=== PATIENT | female | born 1955 | race Caucasian/White ===

== ENCOUNTER 2017-02-24 13:44 | Emergency (ER) | payer MEDICARE, OTHER ==
--- NOTE | 2017-02-24 14:03 | PDOC ---
History of Present Illness - General Chief Complaint: Syncope/Near Syncope Stated Complaint: SYNCOPY Time Seen by Provider: 02/24/17 13:48 - History of Present Illness Initial Comments: 02/24/17 14:27 The patient is a 61 year old female with a history of HTN, osteoarthritis, and anxiety who presents for evaluation via EMS following an syncopal episode. 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 She does not know if she hit her head and EMS does not know either. She denies any chest pain or palpitations prior to the episode. She currently denies fevers, chills, SOB, chest pain, abdominal pain, numbness, or weakness. Past History - Past Medical History Allergies/Adverse Reactions: Allergies Allergy/AdvReac Type Severity Reaction Status Date / Time No Known Allergies Allergy Verified 02/24/17 15:21 Home Medications: Ambulatory Orders Cephalexin [Keflex] 500 mg PO TID #21 capsule 11/02/13 Naproxen [Naprosyn -] 500 mg PO BID #30 tablet 11/02/13 Pnv/Iron,Carb/Om-3/FA/Fat 1 [Multivitamin with Minerals Cap] 100 ml PO ASDIR Sulfamethoxazole/Trimethoprim [Bactrim *Ds*] 1 tab PO BID #14 tablet 11/02/13 Anemia: No Asthma: No Cancer: No Cardiac Disorders: No CVA: No COPD: No CHF: No Dementia: No Diabetes: Yes GI Disorders: No Disorders: No HTN: No Hypercholesterolemia: No Liver Disease: No Seizures: No Thyroid Disease: No - Surgical History Abdominal Surgery: No Appendectomy: No Cardiac Surgery: No Cholecystectomy: No Lung Surgery: No Neurologic Surgery: No Orthopedic Surgery: Yes (rt shoulder sx) - Immunization History Td Vaccination: No TDAP Vaccination: No Immunization Up to Date: No - Suicide/Smoking/Psychosocial Hx Smoking Status: No Smoking History: Never smoked Have you smoked in the past 12 months: No Number of Cigarettes Smoked Daily: 0 Hx Alcohol Use: No Drug/Substance Use Hx: No Substance Use Type: None Hx Substance Use Treatment: No Review of Systems - Review of Systems Comments:: 02/24/17 14:41 Constitutional: No fevers, chills, fatigue, malaise HEENT: No Rhinorrhea, nasal congestion, visual changes Cardiovascular: Syncope. No chest pain, palpitations, lightheadedness Respiratory: No Cough, SOB, Hemoptysis, Gastrointestinal: No Abdominal pain, Nausea, Vomiting, Constipation, Diarrhea, Melena Genitourinary: No Dysuria, Frequency, Urgency, Hesitancy, Hematuria, Flank pain Musculoskeletal: No Myalgia, arthralgia Skin: No rashes, itching, bruising, pallor Neurologic: No Headache, Dizziness, Numbness, Weakness, or Tingling *Physical Exam - Physical Exam Comments: 02/24/17 14:43 General Appearance: Nourished. No Apparent Distress HEENT: EOMI, ELIAZAR. No obvious signs of head trauma. No Pharyngeal Erythema, Tonsillar Exudate, Tonsillar Erythema Neck: No Cervical Lymphadenopathy Respiratory/Chest: Lungs Clear, Normal Breath Sounds. No Crackles, Rales, Rhonchi, Wheezing Cardiovascular: Regular Rhythm, Regular Rate. No Murmur, Gallops, Rubs Gastrointestinal/Abdominal: Normal Bowel Sounds, Soft. No Guarding, Rebound, Tenderness Musculoskeletal: No CVA Tenderness Extremity: Normal Capillary Refill Integumentary: Normal Color, Dry, Warm Neurologic: telemetry nurse II-XII NML intact, Fully Oriented, Alert, Normal Mood/Affect, Normal Response, Motor Strength 5/5. ED Treatment Course - LABORATORY CBC & Chemistry Diagram: 02/24/17 15:10 02/24/17 15:10 Medical Decision Making - Medical Decision Making 02/24/17 14:54 The patient is a 61 year old female with a history of HTN, osteoarthritis, and anxiety who presents for evaluation via EMS following an syncopal episode. Differential includes but is not limited to: Vaso-vagal syncope, arrhythmia, acs , metabolic derangement. Given the patient's history as well as normal physical exam, it is likely her syncope was vaso-vagal in nature. EKG done in triage was unremarkable without signs of arrhythmia or st abnormalities. She reports improvement in her symptoms here in the ED. We will obtain a cbc, cmp to evaluate for metabolic derangement. We have low suspicion for acs given her lack of pain. We will continue to monitor and reassess. 02/24/17 17:41 cbc, cmp, UA are unremarkable. The patient reports feeling significant improvement in her symptoms. We are comfortable discharging the patient home at this time with PCP follow up. We discussed the results and the plan with the patient who voiced understanding and is agreeable with the plan. *DC/Admit/Observation/Transfer Diagnosis at time of Disposition: Syncope Qualifiers: Syncope type: vasovagal syncope Qualified Code(s): R55 - Syncope and collapse; R55 - Syncope and collapse - Discharge Dispostion Disposition: HOME Condition at time of disposition: Improved Admit: No - Patient Instructions Printed Discharge Instructions: DI for Syncope in Adults (Fainting) Additional Instructions: Please return to the ER if you experience concerning or worsening symptoms. Please call to schedule a follow up appointment with your primary care provider to discuss your ER visit. Print Language: FRENCH
--- NOTE | 2017-02-24 14:10 | PDOC ---
Attending Attestation - Resident Resident Name: Nasim Olmos - ED Attending Attestation I have performed the following: I have examined & evaluated the patient, The case was reviewed & discussed with the resident, I agree w/resident's findings & plan, Exceptions are as noted - HPI HPI: 02/24/17 15:28 61y F hx of htn, OA, anxiety presents via EMS for evaluation of syncope. The pt states she was a t a store, started feelnig lightheaded and syncopized. episode was witnessed. Pt denies any heaadche, dizziness, vision changes, cp, sob, palpitations, n/v, abd pain, new back pain, numbness/tingling/weakness. the pt had breakfast this morning, denies any current complaints. - Physicial Exam PE: 02/24/17 15:50 GENERAL: The patient is awake, alert, and fully oriented, Nontoxic - in no acute distress. HEAD: Normocephalic, atraumatic. EYES: extraocular movements intact, sclera anicteric, conjunctiva clear. ENT: Normal voice, Moist mucous membranes. NECK: Normal range of motion, supple LUNGS: Breath sounds equal, clear to auscultation bilaterally. No wheezes, no rhonchi, no rales. HEART: Regular rate and rhythm, normal S1 and S2 without murmur, rub or gallop. ABDOMEN: Soft, nontender, normoactive bowel sounds. No guarding, no rebound. . No CVA tenderness EXTREMITIES: Normal range of motion, no edema. No clubbing or cyanosis. No cords, erythema, or tenderness. NEUROLOGICAL: No facial assymetry, Normal speech, PSYCH: Normal mood, normal affect. SKIN: Warm, Dry, normal turgor, - Medical Decision Making 02/24/17 15:50 unknown if she had head injury but pt denies any headache and there is no signs of obvious trauma or tenderness. Will obtain blood work to rule out metabolic derangements, anemia EKG to screen for arrhythmia No significant cardiac risk factors to predispose for arrhythmia If the patient's blood work is normal and the patient is asymptomatic consider discharge to follow-up with PMD 02/24/17 17:50 pt feeling asymptomatic requesting to go home labs unremarakble will dc with pmd fu return precautions were discused I discussed the physical exam findings, ancillary test results and final diagnoses with the patient. I answered all of the patient's questions. The patient was satisfied with the care received and felt comfortable with the discharge plan and treatment plan. The patient will call their primary care physician within 24 hours to arrange follow-up and will return to the Emergency Department with any new, persistent or worsening symptoms. Heart Score/ECG Review - ECG Impressions Comment:: 02/24/17 15:51 Twelve-lead EKG was performed and reviewed by me. There is normal sinus rhythm with a normal rate. The axis is normal. The intervals are normal. There is normal R wave progression There are no ST or T wave abnormalities. Impression: Normal twelve-lead EKG
[2017-02-24 14:12] VITALS: BMI 32.5
[2017-02-24 15:22] LABS: BASOPHIL 0.5 % (0-2.0); EOSINOPHIL 2.2 % (0-4.5); MCH 29.9 pg (25.7-33.7); MCHC 33.6 g/dl (32.0-36.0); MEAN CELL VOLUME 89.2 fl (80-96); MEAN PLT VOLUME 7.1 fl (7.5-11.1); PLATELET COUNT 255 K/MM3 (134-434); RDW 13.1 % (11.6-15.6); WHITE BLOOD COUNT 7.4 K/mm3 (4.0-10.0)
[2017-02-24] MEDS ORDERED: ACETAMINOPHEN 325 MG TABLET (FP) PO ONE (15:28)
[2017-02-24] MEDS ORDERED: ACETAMINOPHEN 325 MG TABLET (FP) ONE (15:36)
[2017-02-24 15:52] LABS: ALBUMIN 3.6 g/dl (3.4-5.0); ANION GAP 6 (8-16); CALCIUM 9.1 mg/dL (8.5-10.1); CO2 29 mmol/L (21-32); CREATININE 0.5 mg/dL (0.55-1.02); GLUCOSE,RANDOM 96 mg/dL (74-106); SGOT/AST 23 U/L (15-37); SGPT/ALT 37 U/L (12-78)
[2017-02-24 15:53] LABS: ALK PHOS 97 U/L (45-117); BILIRUBIN,TOTAL 0.4 mg/dL (0.2-1.0)
[2017-02-24 17:25] LABS: URINE APPEARANCE CLEAR; URINE BILIRUBIN NEGATIVE (NEGATIVE); URINE BLOOD 1+ (NEGATIVE); URINE COLOR STRAW; URINE GLUCOSE (UA) NEGATIVE (NEGATIVE); URINE KETONE NEGATIVE (NEGATIVE); URINE NITRITE NEGATIVE (NEGATIVE); URINE PROTEIN NEGATIVE (NEGATIVE); URINE UROBILINOGEN NEGATIVE mg/dL (0.2-1.0)
[2017-02-24 17:35] LABS: URINE RBC 1 /hpf (0-3); URINE WBC 2 /hpf (3-5)
[2017-02-24 17:56] VITALS: BP 133/70; PULSE 78; TEMP 98
[2017-02-24 21:14] LABS: URINE LEUK ESTERASE TRACE (NEGATIVE)
--- NOTE | 2017-02-25 07:05 | EKG ---
Test Reason : Blood Pressure : / mmHG Vent. Rate : 073 BPM Atrial Rate : 073 BPM P-R Int : 144 ms QRS Dur : 084 ms QT Int : 386 ms P-R-T Axes : 022 001 015 degrees QTc Int : 425 ms NORMAL SINUS RHYTHM NORMAL ECG WHEN COMPARED WITH ECG OF 07-AUG-2012 20:58, NO SIGNIFICANT CHANGE WAS FOUND Confirmed by APRIL MONCADA MD ([id number]) on 02/25/2017 7:05:04 AM Referred By: Confirmed By:APRIL MONCADA MD
== END 2017-02-24 17:56 | disposition home or self-care (01) ==
LOC: JER 13:44
DX: R55 Syncope and collapse (principal); I10 Essential (primary) hypertension; F41.9 Anxiety disorder, unspecified; M19.90 Unspecified osteoarthritis, unspecified site
CPT/HCPCS: 36415; 80053; 81003; 81015; 85025; 93005; 93010; 99285-25

== ENCOUNTER 2017-08-13 08:34 | Emergency (ER) | payer MEDICARE, OTHER ==
--- NOTE | 2017-08-13 08:46 | PDOC ---
History of Present Illness - General Stated Complaint: DIZZINESS History Source: Patient Exam Limitations: Language Barrier - History of Present Illness Initial Comments: 08/13/17 11:05 HPI: This 62-year-old female presents to the emergency room after having a rapid response in the hallway of [facility]. Apparently she had gone to [address] [place] [address] where her primary physician sees her. She had complained of feeling dizzy and lightheaded for the last 4 days. They told her to report to the emergency room. She drove here and once she was in the building it was witnessed that she did not have a loss consciousness however she did feel dizzy and fell to the floor. She was brought into the emergency room for an exam. She did not hit her head per the witnesses. Chief Compliant:dizzy, earache, sore throat Pain location:ear and throat Duration:4 days Modifying factors:none Quality:pain Radiating:none Severity:moderatee Time:on an doff PMH: OA, was DM but lost weight, no longer on meds FH: Pt has not recently traveled outside the country in the last 30 days. Pt has not been in contact with people who have traveled out of the country, in contact with people who have been ill with fever, n, v, d. SH: smoking use: NONE illicit drug use: NONE alcohol use: NONE employment/educational status: sexual history: PSH: none Home med use noted on JUL Allergies:nka Immunizations: PCP: [address] [place] [address] Past History - Past Medical History Allergies/Adverse Reactions: Allergies Allergy/AdvReac Type Severity Reaction Status Date / Time No Known Allergies Allergy Verified 08/13/17 08:50 Home Medications: Ambulatory Orders Amoxicillin/Potassium Clav [Augmentin 875-125 Tablet] 1 each PO BID #14 tablet 08/13/17 Meclizine HCl [Antivert -] 25 mg PO TID #21 tablet 08/13/17 Anemia: No Asthma: No Cancer: No Cardiac Disorders: No CVA: No COPD: No CHF: No Dementia: No Diabetes: Yes GI Disorders: No Disorders: No HTN: No Hypercholesterolemia: No Liver Disease: No Seizures: No Thyroid Disease: No - Surgical History Abdominal Surgery: No Appendectomy: No Cardiac Surgery: No Cholecystectomy: No Lung Surgery: No Neurologic Surgery: No Orthopedic Surgery: Yes (rt shoulder sx) - Immunization History Td Vaccination: No TDAP Vaccination: No Immunization Up to Date: No - Suicide/Smoking/Psychosocial Hx Smoking Status: No Smoking History: Never smoked Have you smoked in the past 12 months: No Number of Cigarettes Smoked Daily: 0 Hx Alcohol Use: No Drug/Substance Use Hx: No Substance Use Type: None Hx Substance Use Treatment: No Review of Systems - Review of Systems Able to Perform ROS?: Yes Comments:: 08/13/17 11:09 General statement: "I have dizziness, ear pain and sore throat Hematology: neg history of bleeding/blood thinners Skin: Neg for lesions, rash, bruising. HEENT: + ear pain bilaterally, sore throat Respiratory: Neg SOB or difficulty in breathing Cardiac: Neg chest pain GI: Neg pain, n/v : Neg problems on voiding MS: Neg for joint pain/stiffness, no edema Neuro: Neg for LOC, + weakness, + dizzy, Endocrine: Neg for excess thirst/hunger, cold/heat intolerance, excess sweating Allergies: Neg for allergies *Physical Exam - Physical Exam Comments: 08/13/17 11:14 General Appearance: This well appearing 62 yr old male V/S: hemodynamically stable, afebrile, orthostatics stable Skin: WNL of pt's skin color, no signs of pallor, mottling, cyanosis Head:symmetrical Eyes: EOM's intact , PERRLA Ears: with effusion/whitish behind TM and pain on exam with scope Nose: patent Throat: lips, teeth, gums, tongue, buccal mucos pink and moist, neg erythema, exudate Lungs: Chest symmetry equal. Cap refill <3 seconds. Lung sounds clear Cardiac: PMI at R 4MCL space, pos S1 and S2, regular rate. Abdomen: Soft, round, nontender : Not observed Muscularskeletal: , no edema +PMS Neuro: AAOx3, cognitively intact, speech clear and appropriate. ED Treatment Course - LABORATORY CBC & Chemistry Diagram: 08/13/17 08:45 08/13/17 08:45 Medical Decision Making - Medical Decision Making 08/13/17 11:16 This 62 yr female who was in hallway of when she became weak and fell down to floor witnessed by others for feeling dizziness. She did not her head according to bystanders. Rapid response was called. Patient is awake alert and oriented She states that she's been complaining of dizziness for 4 days. Plan Orthostatics are negative UA negative but has a trace of leuk trase and we will send culture to be followed up as an outpatient Labs within normal limits. EKG normal sinus rhythm Cardiac enzyme negative Tympanic membranes with fullness and white/effusion. Pain during exam. We'll treat for OM. Will also treat with meclizine for vertigo type symptoms. *DC/Admit/Observation/Transfer Diagnosis at time of Disposition: Vertigo Otitis media Qualifiers: Otitis media type: unspecified Chronicity: acute Qualified Code(s): H66.90 - Otitis media, unspecified, unspecified ear - Discharge Dispostion Disposition: HOME Condition at time of disposition: Good Admit: No - Prescriptions Prescriptions: Amoxicillin/Potassium Clav [Augmentin 875-125 Tablet] 1 each PO BID #14 tablet Meclizine HCl [Antivert -] 25 mg PO TID #21 tablet - Referrals Referrals: Marie Crowell MD [Primary Care Provider] - [facility] [Provider Group] - Patient Instructions Printed Discharge Instructions: DI for Benign Paroxysmal Positional Vertigo Additional Instructions: Discharge instructions 1. Please follow up with your primary physician within the next few days and explain that you have been seen here in the Emergency Room with dizzy and ear pain. 2. If you experience any worsening of symptoms, please return to the ER 3. Rest, get up slowly when sitting or lying down and pause to prevent to dizziness, Take the meclazine for dizziness and follow up with [facility] for a follow up exam. complete antibiotics as prescribed. No driving while dizziness. 4. Drink plenty of water - Post Discharge Activity
[2017-08-13 08:50] VITALS: TEMP 98.2; BMI 29.2
[2017-08-13 09:38] LABS: URINE APPEARANCE CLEAR; URINE BILIRUBIN NEGATIVE (<2.0 mg/dL); URINE BLOOD 1+ (NEGATIVE); URINE COLOR LTYELLOW; URINE GLUCOSE (UA) NEGATIVE (NEGATIVE); URINE KETONE NEGATIVE (NEGATIVE); URINE LEUK ESTERASE TRACE (NEGATIVE); URINE NITRITE NEGATIVE (NEGATIVE); URINE PROTEIN NEGATIVE (NEGATIVE); URINE UROBILINOGEN NEGATIVE mg/dL (0.2-1.0)
[2017-08-13 09:39] LABS: BASO % 0.6 % (0-2.0); EOS % 2.3 % (0-4.5); HEMATOCRIT 39.3 % (32.4-45.2); HEMOGLOBIN 13.1 GM/dL (10.7-15.3); LYMPH % 43.4 % (8-40); MCH 29.8 pg (25.7-33.7); MCHC 33.3 g/dl (32.0-36.0); MEAN CELL VOLUME 89.5 fl (80-96); MEAN PLT VOLUME 7.7 fl (7.5-11.1); MONO % 6.1 % (3.8-10.2); NEUT % 47.6 % (42.8-82.8); PLATELET COUNT 263 K/MM3 (134-434); RBC 4.39 M/mm3 (3.60-5.2); RDW 13.2 % (11.6-15.6); WHITE BLOOD COUNT 5.5 K/mm3 (4.0-10.0)
[2017-08-13 09:44] LABS: EPI CELLS RARE /HPF (FEW); URINE MUCUS RARE
[2017-08-13 10:04] LABS: ALBUMIN 3.6 g/dl (3.4-5.0); ANION GAP 3 (8-16); BILIRUBIN,TOTAL 0.2 mg/dL (0.2-1.0); BLOOD UREA NITROGEN 13 mg/dL (7-18); CALCIUM 8.5 mg/dL (8.5-10.1); CHLORIDE 108 mmol/L (98-107); CO2 26 mmol/L (21-32); CREATININE 0.5 mg/dL (0.55-1.02); GLUCOSE,RANDOM 109 mg/dL (74-106); POTASSIUM 4.1 mmol/L (3.5-5.1); SGOT/AST 23 U/L (15-37); SGPT/ALT 34 U/L (12-78); SODIUM 137 mmol/L (136-145); TOT PROT 6.8 g/dl (6.4-8.2)
[2017-08-13 10:07] LABS: ALK PHOS 84 U/L (45-117)
[2017-08-13] MEDS ORDERED: MECLIZINE HCL 25 MG TABLET (FP) PO ONE (10:21)
[2017-08-13] MEDS ORDERED: MECLIZINE HCL 25 MG TABLET (FP) ONE (10:31)
[2017-08-13 12:39] VITALS: BP 138/72; PULSE 79
--- NOTE | 2017-08-13 13:14 | EKG ---
Test Reason : Blood Pressure : / mmHG Vent. Rate : 070 BPM Atrial Rate : 070 BPM P-R Int : 150 ms QRS Dur : 084 ms QT Int : 390 ms P-R-T Axes : 012 010 023 degrees QTc Int : 421 ms NORMAL SINUS RHYTHM NORMAL ECG WHEN COMPARED WITH ECG OF 24-FEB-2017 14:13, NO SIGNIFICANT CHANGE WAS FOUND Confirmed by GALE RONDON MD ([id number]) on 08/13/2017 1:14:10 PM Referred By: Confirmed By:GALE RONDON MD
== END 2017-08-13 12:41 | disposition home or self-care (01) ==
LOC: JER 08:34
DX: H66.90 Otitis media, unspecified, unspecified ear (principal); R42 Dizziness and giddiness; E11.9 Type 2 diabetes mellitus without complications
CPT/HCPCS: 36415; 80053; 81003; 81015; 82550; 83036; 84484; 85025; 87086; 93005; 93010; 99284-25

== ENCOUNTER 2020-04-04 10:51 | Emergency (ER) | payer OTHER ==
[2020-04-04 10:59] VITALS: BP 127/64; PULSE 86; TEMP 98.9; BMI 31.4
[2020-04-04] MEDS ORDERED: LIDOCAINE 5% TOPICAL PATCH TP ONE (12:07)
[2020-04-04] MEDS ORDERED: ACETAMINOPHEN 1000 MG/100 ML VIAL (NON FORMULARY) IVPB ONE (12:07)
[2020-04-04] MEDS ORDERED: METOCLOPRAMIDE HCL INJECTION 10 MG/2 ML VIAL IVPB ONE (12:07)
[2020-04-04] MEDS ORDERED: SODIUM CHLORIDE 1,000 ML IV STA (12:07)
[2020-04-04] MEDS ORDERED: ACETAMINOPHEN INJECTION 100 ML IVPB ONE (12:56)
[2020-04-04] MEDS ORDERED: METOCLOPRAMIDE HCL INJECTION 10 MG/2 ML VIAL ONE (12:56)
[2020-04-04] MEDS ORDERED: LIDOCAINE 5% TOPICAL PATCH ONE (12:57)
== END 2020-04-04 14:07 | disposition home or self-care (01) ==
LOC: JER 10:51
PROC: 3E033NZ Introduction of Analgesics, Hypnotics, Sedatives into Peripheral Vein, Percutaneous Approach (ICD-10-PCS; principal; 2020-04-04)
PROC: 3E033GC Introduction of Other Therapeutic Substance into Peripheral Vein, Percutaneous Approach (ICD-10-PCS; 2020-04-04)
PROC: 3E0337Z Introduction of Electrolytic and Water Balance Substance into Peripheral Vein, Percutaneous Approach (ICD-10-PCS; 2020-04-04)
DX: G44.89 Other headache syndrome (principal); H11.32 Conjunctival hemorrhage, left eye
CPT/HCPCS: 70450-TC; 99285-25; J0131

== ENCOUNTER 2020-05-27 06:11 | Inpatient (IN) | payer OTHER ==
[2020-05-27] MEDS ORDERED: ACETAMINOPHEN 1000 MG/100 ML VIAL (NON FORMULARY) IVPB PRN (07:10)
[2020-05-27] MEDS ORDERED: LACTATED RINGERS SOLUTION 1000 ML INFUS.BAG IV STA (07:11)
[2020-05-27 07:16] LABS: INR 1.15 (0.83-1.09); PROTHROMBIN TIME (PATIENT) 13.8 SEC (9.7-13.0)
[2020-05-27 07:18] LABS: BASO % 0.2 % (0-2.0); HEMATOCRIT 39.1 % (32.4-45.2); HEMOGLOBIN 13.5 GM/dL (10.7-15.3); LYMPH % 23.1 % (8-40); MCH 30.1 pg (25.7-33.7); MCHC 34.6 g/dl (32.0-36.0); MEAN CELL VOLUME 86.9 fl (80-96); MEAN PLT VOLUME 7.1 fl (7.5-11.1); MONO % 4.3 % (3.8-10.2); NEUT % 72.4 % (42.8-82.8); PLATELET COUNT 293 K/MM3 (134-434); RDW 12.7 % (11.6-15.6); WHITE BLOOD COUNT 6.9 K/mm3 (4.0-10.0)
[2020-05-27 07:19] LABS: ACTIVATED PTT 30.3 SECONDS (25.2-36.5)
[2020-05-27 07:30] LABS: CHLORIDE 98 mmol/L (98-107); SODIUM 131 mmol/L (136-145)
[2020-05-27 07:33] LABS: ALBUMIN 2.8 g/dl (3.4-5.0); ANION GAP 9 MMOL/L (8-16); CALCIUM 8.1 mg/dL (8.5-10.1); CO2 24 mmol/L (21-32)
[2020-05-27 07:34] LABS: BLOOD UREA NITROGEN 11.3 mg/dL (7-18); GLUCOSE,RANDOM 111 mg/dL (74-106)
[2020-05-27 07:35] LABS: BILIRUBIN,DIRECT 0.2 mg/dL (0.0-0.2); SGPT/ALT 31 U/L (13-61)
[2020-05-27 07:36] LABS: CREATININE 0.6 mg/dL (0.55-1.3); SGOT/AST 31 U/L (15-37)
[2020-05-27 07:37] LABS: BILIRUBIN,TOTAL 0.5 mg/dL (0.2-1); LDH 344 U/L (84-246); TOT PROT 6.7 g/dl (6.4-8.2)
[2020-05-27 07:38] LABS: ALK PHOS 64 U/L (45-117)
[2020-05-27] MEDS ORDERED: FAMOTIDINE 20 MG/50 ML IVPB 20 MG/50 ML MG IVPB ONE ×2 (07:45→08:08)
[2020-05-27] MEDS ORDERED: DEXAMETHASONE SOD PHOSPHATE 4 MG/1 ML VIAL IVPUSH ONE (07:50)
[2020-05-27] MEDS ORDERED: DEXAMETHASONE SOD PHOSPHATE 10 MG/1 ML VIAL ONE (08:07)
[2020-05-27] MEDS ORDERED: ACETAMINOPHEN INJECTION 100 ML IVPB ONE (08:07)
[2020-05-27] MEDS ORDERED: ZINC SULFATE 220 MG TABLET PO SCH (10:00)
[2020-05-27] MEDS ORDERED: ASCORBIC ACID 500 MG TABLET (FP) ONE (10:53)
[2020-05-27] MEDS ORDERED: CHOLECALCIFEROL (VIT D3) 1,000 UNIT (25 MCG) TABLET ONE (10:54)
[2020-05-27] MEDS ORDERED: ENOXAPARIN NA (PORCINE) 40 MG/0.4 ML DISP.SYRIN SQ ONE (10:54)
[2020-05-27] MEDS ORDERED: ZINC SULFATE 220 MG CAPSULE (FP) ONE (10:54)
[2020-05-27] MEDS: ASCORBIC ACID 500 MG TABLET (FP) PO SCH ×2 (11:03→21:20)
[2020-05-27] MEDS: CHOLECALCIFEROL (VIT D3) 1,000 UNIT (25 MCG) TABLET PO SCH (11:03)
[2020-05-27] MEDS: ENOXAPARIN NA (PORCINE) 40 MG/0.4 ML DISP.SYRIN SQ SCH (11:03)
[2020-05-27 13:38] LABS: EPI CELLS 5 /uL (0-25.1); HYALINE CASTS 0 /uL (0-3.1); URINE APPEARANCE CLEAR; URINE BACTERIA 37 /uL (0-1359); URINE BILIRUBIN NEGATIVE (NEGATIVE); URINE COLOR YELLOW; URINE GLUCOSE (UA) NEGATIVE (NEGATIVE); URINE KETONE NEGATIVE (NEGATIVE); URINE LEUK ESTERASE NEGATIVE (NEGATIVE); URINE NITRITE NEGATIVE (NEGATIVE); URINE PROTEIN NEGATIVE (NEGATIVE); URINE RBC 11 /uL (0-23.9); URINE UROBILINOGEN 0.2 mg/dL (0.2-1.0); URINE WBC 4 /uL (0-25.8)
[2020-05-28 01:13] LABS: VENOUS BASE EXCESS -0.8 mmol/L (-2-2); VENOUS O2 SATURATION 92.7 % (70-80); VENOUS PCO2 35.6 mmHg (38-52); VENOUS PH 7.428 (7.310-7.410)
[2020-05-28 02:06] VITALS: BMI 28.5
[2020-05-28 09:50] LABS: HEMATOCRIT 38.3 % (32.4-45.2); HEMOGLOBIN 12.9 GM/dL (10.7-15.3); MCH 29.6 pg (25.7-33.7); MCHC 33.7 g/dl (32.0-36.0); MEAN CELL VOLUME 87.8 fl (80-96); MEAN PLT VOLUME 7.5 fl (7.5-11.1); PLATELET COUNT 318 K/MM3 (134-434); RBC 4.37 M/mm3 (3.60-5.2); WHITE BLOOD COUNT 4.9 K/mm3 (4.0-10.0)
[2020-05-28 09:53] LABS: POTASSIUM 4.2 mmol/L (3.5-5.1)
[2020-05-28 09:59] LABS: BLOOD UREA NITROGEN 11.4 mg/dL (7-18)
[2020-05-28] MEDS ORDERED: DEXAMETHASONE SOD PHOSPHATE 10 MG/1 ML VIAL IVPUSH ONE (10:00)
[2020-05-28 10:01] LABS: MAGNESIUM 2.4 mg/dL (1.8-2.4)
[2020-05-28 10:02] LABS: CALCIUM 8.3 mg/dL (8.5-10.1); CREATININE 0.5 mg/dL (0.55-1.3)
[2020-05-28] MEDS: ENOXAPARIN NA (PORCINE) 40 MG/0.4 ML DISP.SYRIN SQ SCH (10:20)
[2020-05-28] MEDS: CHOLECALCIFEROL (VIT D3) 1,000 UNIT (25 MCG) TABLET PO SCH (10:21)
[2020-05-28] MEDS: FAMOTIDINE 20 MG TABLET PO SCH (10:21)
[2020-05-28] MEDS: ZINC SULFATE 220 MG CAPSULE (FP) PO SCH (10:21)
[2020-05-28] MEDS: ASCORBIC ACID 500 MG TABLET (FP) PO SCH ×2 (10:21→21:02)
[2020-05-28] MEDS ORDERED: REMDESIVIR 200 MG in SODIUM CHLORIDE 210 ML IVPB ONE (19:00)
[2020-05-29] MEDS: ENOXAPARIN NA (PORCINE) 40 MG/0.4 ML DISP.SYRIN SQ SCH (09:41)
[2020-05-29] MEDS: FAMOTIDINE 20 MG TABLET PO SCH (09:41)
[2020-05-29] MEDS: ZINC SULFATE 220 MG CAPSULE (FP) PO SCH (09:41)
[2020-05-29] MEDS: CHOLECALCIFEROL (VIT D3) 1,000 UNIT (25 MCG) TABLET PO SCH (09:41)
[2020-05-29] MEDS: ASCORBIC ACID 500 MG TABLET (FP) PO SCH ×2 (09:41→21:18)
[2020-05-29] MEDS: DEXAMETHASONE 4 MG TABLET (FP) PO SCH (15:56)
[2020-05-29] MEDS: REMDESIVIR 100 MG in SODIUM CHLORIDE 230 ML IVPB SCH (18:09)
[2020-05-30] MEDS: ENOXAPARIN NA (PORCINE) 40 MG/0.4 ML DISP.SYRIN SQ SCH (09:31)
[2020-05-30] MEDS: ASCORBIC ACID 500 MG TABLET (FP) PO SCH ×2 (09:32→21:22)
[2020-05-30] MEDS: FAMOTIDINE 20 MG TABLET PO SCH (09:32)
[2020-05-30] MEDS: CHOLECALCIFEROL (VIT D3) 1,000 UNIT (25 MCG) TABLET PO SCH (09:32)
[2020-05-30] MEDS: ACETAMINOPHEN 325 MG TABLET (FP) PO PRN (09:32)
[2020-05-30] MEDS: ZINC SULFATE 220 MG CAPSULE (FP) PO SCH (09:32)
[2020-05-30] MEDS: DEXAMETHASONE 4 MG TABLET (FP) PO SCH (09:35)
[2020-05-30] MEDS ORDERED: PT OWN MED DRAWER 7, Y5N ONE (09:35)
[2020-05-30 09:45] LABS: BASO % 0.5 % (0-2.0); HEMATOCRIT 40.9 % (32.4-45.2); LYMPH % 22.7 % (8-40); MCH 30.1 pg (25.7-33.7); MCHC 34.2 g/dl (32.0-36.0); MEAN PLT VOLUME 7.4 fl (7.5-11.1); MONO % 5.5 % (3.8-10.2); NEUT % 71.3 % (42.8-82.8); PLATELET COUNT 432 K/MM3 (134-434); RBC 4.65 M/mm3 (3.60-5.2); WHITE BLOOD COUNT 4.5 K/mm3 (4.0-10.0)
[2020-05-30 10:25] LABS: POTASSIUM 4.1 mmol/L (3.5-5.1)
[2020-05-30 10:28] LABS: ALBUMIN 3.1 g/dl (3.4-5.0); BLOOD UREA NITROGEN 17.7 mg/dL (7-18); CALCIUM 8.8 mg/dL (8.5-10.1); MAGNESIUM 2.5 mg/dL (1.8-2.4)
[2020-05-30 10:32] LABS: CREATININE 0.6 mg/dL (0.55-1.3)
[2020-05-30 10:33] LABS: BILIRUBIN,TOTAL 0.5 mg/dL (0.2-1); TOT PROT 7.2 g/dl (6.4-8.2)
[2020-05-30] MEDS ORDERED: POLYETHYLENE GLYCOL 3350 119 GM BTL PO PRN (15:23)
[2020-05-30] MEDS: REMDESIVIR 100 MG in SODIUM CHLORIDE 230 ML IVPB SCH (18:00)
[2020-05-31 09:04] LABS: BASO % 0.2 % (0-2.0); EOS % 0.1 % (0-4.5); HEMATOCRIT 37.5 % (32.4-45.2); HEMOGLOBIN 12.9 GM/dL (10.7-15.3); MCHC 34.3 g/dl (32.0-36.0); MEAN CELL VOLUME 87.5 fl (80-96); MEAN PLT VOLUME 7.3 fl (7.5-11.1); MONO % 8.5 % (3.8-10.2); NEUT % 67.2 % (42.8-82.8); PLATELET COUNT 391 K/MM3 (134-434); RBC 4.29 M/mm3 (3.60-5.2); RDW 12.9 % (11.6-15.6); WHITE BLOOD COUNT 5.4 K/mm3 (4.0-10.0)
[2020-05-31] MEDS ORDERED: PT OWN MED DRAWER 7, Y5N ONE (09:09)
[2020-05-31 09:30] LABS: POTASSIUM 4.8 mmol/L (3.5-5.1)
[2020-05-31 09:33] LABS: ALBUMIN 2.7 g/dl (3.4-5.0); CALCIUM 8.1 mg/dL (8.5-10.1)
[2020-05-31 09:34] LABS: BLOOD UREA NITROGEN 14.2 mg/dL (7-18); MAGNESIUM 2.4 mg/dL (1.8-2.4)
[2020-05-31 09:37] LABS: CREATININE 0.5 mg/dL (0.55-1.3); PHOSPHOROUS 3.3 mg/dL (2.5-4.9)
[2020-05-31 09:38] LABS: TOT PROT 6.2 g/dl (6.4-8.2)
[2020-05-31 09:40] LABS: BILIRUBIN,TOTAL 0.8 mg/dL (0.2-1)
[2020-05-31 09:55] LABS: ANISOCYTOSIS 0; MACROCYTOSIS 0; PLATELET ESTIMATE NORMAL
[2020-05-31] MEDS ORDERED: DOCUSATE SODIUM 100 MG CAPSULE (FP) PO PRN (10:28)
[2020-05-31] MEDS ORDERED: MINERAL OIL ENEMA 133 ML ENEMA RC ONE (10:34)
[2020-05-31] MEDS: ENOXAPARIN NA (PORCINE) 40 MG/0.4 ML DISP.SYRIN SQ SCH (11:52)
[2020-05-31] MEDS: ACETAMINOPHEN 325 MG TABLET (FP) PO PRN (11:53)
[2020-05-31] MEDS: POLYETHYLENE GLYCOL 3350 119 GM BTL PO SCH ×2 (11:57→22:39)
[2020-05-31] MEDS: FAMOTIDINE 20 MG TABLET PO SCH (11:58)
[2020-05-31] MEDS: ZINC SULFATE 220 MG CAPSULE (FP) PO SCH (11:58)
[2020-05-31] MEDS: CHOLECALCIFEROL (VIT D3) 1,000 UNIT (25 MCG) TABLET PO SCH (11:58)
[2020-05-31] MEDS: ASCORBIC ACID 500 MG TABLET (FP) PO SCH ×2 (11:58→22:39)
[2020-05-31] MEDS: DEXAMETHASONE 4 MG TABLET (FP) PO SCH (17:35)
[2020-05-31] MEDS: REMDESIVIR 100 MG in SODIUM CHLORIDE 230 ML IVPB SCH (19:57)
[2020-06-01 08:58] LABS: POTASSIUM 4.9 mmol/L (3.5-5.1)
[2020-06-01 09:09] LABS: BLOOD UREA NITROGEN 14.6 mg/dL (7-18); CALCIUM 8.5 mg/dL (8.5-10.1)
[2020-06-01 09:12] LABS: CREATININE 0.5 mg/dL (0.55-1.3)
[2020-06-01] MEDS ORDERED: PT OWN MED DRAWER 7, Y5N ONE (12:16)
[2020-06-01] MEDS ORDERED: MAGNESIUM HYDROX 2400MG/30ML ORAL SUSPENSION 30 ML CUP PO ONE (12:30)
[2020-06-01] MEDS: ASCORBIC ACID 500 MG TABLET (FP) PO SCH (12:31)
[2020-06-01] MEDS: CHOLECALCIFEROL (VIT D3) 1,000 UNIT (25 MCG) TABLET PO SCH (12:31)
[2020-06-01] MEDS: POLYETHYLENE GLYCOL 3350 119 GM BTL PO SCH (12:31)
[2020-06-01] MEDS: FAMOTIDINE 20 MG TABLET PO SCH (12:31)
[2020-06-01] MEDS: ZINC SULFATE 220 MG CAPSULE (FP) PO SCH (12:31)
[2020-06-01] MEDS: DEXAMETHASONE 4 MG TABLET (FP) PO SCH (12:32)
[2020-06-01] MEDS: ENOXAPARIN NA (PORCINE) 40 MG/0.4 ML DISP.SYRIN SQ SCH (12:32)
[2020-06-01 14:17] VITALS: BP 103/59; PULSE 75; TEMP 99.7
[2020-06-01] MEDS: REMDESIVIR 100 MG in SODIUM CHLORIDE 230 ML IVPB SCH (19:10)
[2020-06-01] MEDS ORDERED: MELATONIN 5 MG TABLETS PO SCH (22:00)
== END 2020-06-01 21:19 | disposition home or self-care (01) | DRG 177 ==
LOC: JER 06:11 → JERBED 08:25 → J6S 22:40
PROVIDERS: ADMIT Internal Medicine; ATTEND Student in an Organized Health Care Education/Training Program
PROC: XW033E5 Introduction of Remdesivir Anti-infective into Peripheral Vein, Percutaneous Approach, New Technology Group 5 (ICD-10-PCS; principal; 2020-05-29)
PROC: XW13325 Transfusion of Convalescent Plasma (Nonautologous) into Peripheral Vein, Percutaneous Approach, New Technology Group 5 (ICD-10-PCS; 2020-05-29)
DX: U07.1 COVID-19 (principal); J96.01 Acute respiratory failure with hypoxia; J12.82 Pneumonia due to coronavirus disease 2019; E11.9 Type 2 diabetes mellitus without complications; E66.9 Obesity, unspecified; Z68.28 Body mass index [BMI] 28.0-28.9, adult; K59.00 Constipation, unspecified
CPT/HCPCS: 36415; 36430; 71045-TC-FY; 80048; 80053; 81003; 82248; 82550; 82728; 82803; 83036; 83605; 83615; 83735; 84100; 84484; 85025; 85027; 85379; 85610; 85730; 86140; 86850; 86900; 86901; 87040; 87086; 87804; 93005; 93010; 94010; 97116-GP; 97161-GP; 99285-25; C9399; C9803; J0131; J1100; P9017; U0003

== ENCOUNTER 2021-01-09 04:43 | Day surgery (SDC) | payer OTHER ==
[2021-01-09] MEDS ORDERED: KETAMINE HCL 200 MG/20 ML VIAL ONE (07:11)
[2021-01-09 08:35] VITALS: BMI 30.7
[2021-01-09 09:53] VITALS: TEMP 97.5
[2021-01-09 10:22] VITALS: BP 135/64; PULSE 61
== END 2021-01-09 10:42 | disposition home or self-care (01) ==
LOC: JASU-ENDO 04:43
PROVIDERS: ATTEND Internal Medicine Gastroenterology
PROC: 0DBL8ZX Excision of Transverse Colon, Via Natural or Artificial Opening Endoscopic, Diagnostic (ICD-10-PCS; 2021-01-09)
PROC: 0DBN8ZX Excision of Sigmoid Colon, Via Natural or Artificial Opening Endoscopic, Diagnostic (ICD-10-PCS; principal; 2021-01-09 09:00)
DX: Z12.11 Encounter for screening for malignant neoplasm of colon (principal); K63.5 Polyp of colon; K57.30 Diverticulosis of large intestine without perforation or abscess without bleeding; K59.00 Constipation, unspecified; K59.89 Other specified functional intestinal disorders; K64.8 Other hemorrhoids; K63.89 Other specified diseases of intestine; Z80.0 Family history of malignant neoplasm of digestive organs

== ENCOUNTER 2021-07-27 10:07 | Emergency (ER) | payer OTHER ==
[2021-07-27 10:37] VITALS: BMI 29.9
[2021-07-27] MEDS ORDERED: ACETAMINOPHEN 1000 MG/100 ML BAG IVPB ONE (11:23)
[2021-07-27] MEDS ORDERED: SODIUM CHLORIDE 1,000 ML IV STA (11:23)
[2021-07-27] MEDS ORDERED: FAMOTIDINE 20 MG/50 ML IVPB 20 MG/50 ML MG IVPB ONE ×2 (11:23→11:46)
[2021-07-27] MEDS ORDERED: ONDANSETRON 4 MG/2 ML VIAL IVPUSH ONE (11:23)
[2021-07-27] MEDS ORDERED: MAG HYDROX/AL HYDROX/SIMETH 30 ML UNIT-DOSE CUP PO ONE (11:37)
[2021-07-27] MEDS ORDERED: ACETAMINOPHEN INJECTION 100 ML IVPB ONE (11:45)
[2021-07-27] MEDS ORDERED: ONDANSETRON 4 MG/2 ML VIAL ONE (11:46)
[2021-07-27] MEDS ORDERED: MAG HYDROX/AL HYDROX/SIMETH 30 ML UNIT-DOSE CUP ONE (11:46)
[2021-07-27 12:37] LABS: BASO % 0.4 % (0-2.0); EOS % 1.1 % (0-4.5); HEMATOCRIT 43.1 % (32.4-45.2); HEMOGLOBIN 14.4 GM/dL (10.7-15.3); LYMPH % 53.4 % (8-40); MCH 29.8 pg (25.7-33.7); MCHC 33.5 g/dl (32.0-36.0); MEAN CELL VOLUME 88.8 fl (80-96); MEAN PLT VOLUME 7.2 fl (7.5-11.1); MONO % 5.8 % (3.8-10.2); NEUT % 39.3 % (42.8-82.8); PLATELET COUNT 274 10^3/uL (134-434); RBC 4.85 M/mm3 (3.60-5.2); RDW 12.9 % (11.6-15.6); WHITE BLOOD COUNT 5.7 K/mm3 (4.0-10.0)
[2021-07-27 12:45] LABS: INR 1.05 (0.83-1.09); PROTHROMBIN TIME (PATIENT) 12.1 SEC (9.7-13.0)
[2021-07-27 13:05] LABS: CALCIUM 9.7 mg/dL (8.5-10.1)
[2021-07-27 13:06] LABS: ALBUMIN 4.2 g/dl (3.4-5.0); BLOOD UREA NITROGEN 10.5 mg/dL (7-18)
[2021-07-27 13:09] LABS: CREATININE 0.6 mg/dL (0.55-1.3)
[2021-07-27 13:11] LABS: BILIRUBIN,TOTAL 0.5 mg/dL (0.2-1); TOT PROT 7.5 g/dl (6.4-8.2)
[2021-07-27 14:23] LABS: EPI CELLS 13 /uL (0-25.1); HYALINE CASTS 1 /uL (0-3.1); URINE APPEARANCE CLEAR; URINE BACTERIA 433 /uL (0-1359); URINE BILIRUBIN NEGATIVE (NEGATIVE); URINE COLOR YELLOW; URINE GLUCOSE (UA) NEGATIVE (NEGATIVE); URINE KETONE NEGATIVE (NEGATIVE); URINE LEUK ESTERASE 1+ (NEGATIVE); URINE NITRITE NEGATIVE (NEGATIVE); URINE PROTEIN NEGATIVE (NEGATIVE); URINE RBC 46 /uL (0-23.9); URINE UROBILINOGEN 0.2 mg/dL (0.2-1.0); URINE WBC 26 /uL (0-25.8)
[2021-07-27 16:38] VITALS: BP 135/64; PULSE 54; TEMP 97.1
== END 2021-07-27 16:39 | disposition home or self-care (01) ==
LOC: JER 10:07
PROC: 3E0333Z Introduction of Anti-inflammatory into Peripheral Vein, Percutaneous Approach (ICD-10-PCS; principal; 2021-07-27)
PROC: 3E033GC Introduction of Other Therapeutic Substance into Peripheral Vein, Percutaneous Approach (ICD-10-PCS; 2021-07-27)
PROC: 3E033GC Introduction of Other Therapeutic Substance into Peripheral Vein, Percutaneous Approach (ICD-10-PCS; 2021-07-27)
PROC: 3E0337Z Introduction of Electrolytic and Water Balance Substance into Peripheral Vein, Percutaneous Approach (ICD-10-PCS; 2021-07-27)
DX: R10.13 Epigastric pain (principal); N30.01 Acute cystitis with hematuria
CPT/HCPCS: 36415; 74177-TC; 76705-TC; 80053; 81003; 83690; 85025; 85610; 87086; 93005; 93010; 96361; 96374; 96375; 99285-25; Q9967

== ENCOUNTER 2021-09-06 04:27 | Day surgery (SDC) | payer OTHER ==
[2021-09-03 12:18] VITALS: BMI 32.0
[2021-09-06 08:35] VITALS: TEMP 97.3
[2021-09-06 09:08] VITALS: BP 109/58; PULSE 66
== END 2021-09-06 09:06 | disposition home or self-care (01) ==
LOC: JASU-ENDO 04:27
PROVIDERS: ATTEND Internal Medicine Gastroenterology
PROC: 0DB78ZX Excision of Stomach, Pylorus, Via Natural or Artificial Opening Endoscopic, Diagnostic (ICD-10-PCS; 2021-09-06)
PROC: 0DB68ZX Excision of Stomach, Via Natural or Artificial Opening Endoscopic, Diagnostic (ICD-10-PCS; 2021-09-06)
PROC: 0DB98ZX Excision of Duodenum, Via Natural or Artificial Opening Endoscopic, Diagnostic (ICD-10-PCS; principal; 2021-09-06 08:00)
DX: K29.50 Unspecified chronic gastritis without bleeding (principal); K30 Functional dyspepsia
CPT/HCPCS: 88305-TC; 88342-TC

== ENCOUNTER 2022-05-30 14:51 | Emergency (ER) | payer OTHER ==
[2022-05-30 15:10] VITALS: RESP 18; BMI 32.8
[2022-05-30] MEDS ORDERED: ACETAMINOPHEN 1000 MG/100 ML BAG IVPB ONE (16:14)
[2022-05-30] MEDS ORDERED: ACETAMINOPHEN INJECTION 100 ML IVPB ONE (16:27)
[2022-05-30] MEDS ORDERED: LIDOCAINE 5% TOPICAL PATCH TP ONE ×3 (16:28→16:29)
[2022-05-30] MEDS ORDERED: LIDOCAINE 5% TOPICAL PATCH ONE (16:32)
[2022-05-30 16:52] LABS: BASO % 0.6 % (0-2.0); EOS % 1.4 % (0-4.5); HEMATOCRIT 41.8 % (32.4-45.2); LYMPH % 42.2 % (8-40); MCH 29.7 pg (25.7-33.7); MCHC 33.5 g/dl (32.0-36.0); MEAN CELL VOLUME 88.8 fl (80-96); MEAN PLT VOLUME 7.7 fl (7.5-11.1); MONO % 7.9 % (3.8-10.2); NEUT % 47.9 % (42.8-82.8); PLATELET COUNT 290 10^3/uL (134-434); RDW 13.2 % (11.6-15.6); WHITE BLOOD COUNT 6.7 K/mm3 (4.0-10.0)
[2022-05-30 16:59] LABS: INR 0.91 (0.83-1.09); PROTHROMBIN TIME (PATIENT) 10.4 SEC (9.7-13.0)
[2022-05-30 17:02] LABS: ACTIVATED PTT 36.1 SECONDS (25.2-36.5)
[2022-05-30 17:19] LABS: CALCIUM 9.7 mg/dL (8.5-10.1)
[2022-05-30 17:20] LABS: BLOOD UREA NITROGEN 11.9 mg/dL (7-18)
[2022-05-30 17:23] LABS: CREATININE 0.6 mg/dL (0.55-1.3)
[2022-05-30 17:24] LABS: TOT PROT 7.4 g/dl (6.4-8.2)
[2022-05-30 17:25] LABS: BILIRUBIN,TOTAL 0.2 mg/dL (0.2-1)
[2022-05-30 19:50] VITALS: BP 126/52; PULSE 68; TEMP 97.9
[2022-05-30] MEDS ORDERED: LIDOCAINE PATCH REMOVAL MC SCH ×3 (22:00)
[2022-05-30] MEDS ORDERED: KETOROLAC TROMETHAMINE 30 MG/1 ML VIAL IM ONE (22:21)
[2022-05-30] MEDS ORDERED: KETOROLAC TROMETHAMINE 15 MG/ML VIAL ONE (22:24)
== END 2022-05-30 22:50 | disposition home or self-care (01) ==
LOC: JER 14:51
PROC: 3E0333Z Introduction of Anti-inflammatory into Peripheral Vein, Percutaneous Approach (ICD-10-PCS; principal; 2022-05-30)
PROC: 3E0233Z Introduction of Anti-inflammatory into Muscle, Percutaneous Approach (ICD-10-PCS; 2022-05-30)
DX: M54.2 Cervicalgia (principal); R10.9 Unspecified abdominal pain; M54.50 Low back pain, unspecified; V43.52XA Car driver injured in collision with other type car in traffic accident, initial encounter
CPT/HCPCS: 36415; 70450-TC; 71045-TC-FY; 71260-TC; 72125-TC; 72128-TC; 72131-TC; 74177-TC; 76604; 76705-TC; 80053; 84484; 85025; 85610; 85730; 86850; 86900; 86901; 93005; 93010; 93308; 99285-25; Q9967

== ENCOUNTER 2022-08-09 15:07 | Emergency (ER) | payer OTHER ==
[2022-08-09 15:30] VITALS: BP 130/46; PULSE 87; TEMP 98.1; BMI 32.8
[2022-08-09 16:50] LABS: EPI CELLS 3 /uL (0-25.1); HYALINE CASTS 0 /uL (0-3.1); PH,URINE 5.5 (5.0-8.0); URINE APPEARANCE CLEAR; URINE BACTERIA 8 /uL (0-1359); URINE BILIRUBIN NEGATIVE (NEGATIVE); URINE COLOR YELLOW; URINE GLUCOSE (UA) NEGATIVE (NEGATIVE); URINE KETONE NEGATIVE (NEGATIVE); URINE LEUK ESTERASE NEGATIVE (NEGATIVE); URINE NITRITE NEGATIVE (NEGATIVE); URINE PROTEIN NEGATIVE (NEGATIVE); URINE RBC 23 /uL (0-23.9); URINE UROBILINOGEN 0.2 mg/dL (0.2-1.0); URINE WBC 7 /uL (0-25.8)
[2022-08-09 17:12] LABS: HEMATOCRIT 39.2 % (32.4-45.2); HEMOGLOBIN 13.1 GM/dL (10.7-15.3); MCH 29.2 pg (25.7-33.7); MCHC 33.3 g/dl (32.0-36.0); MEAN CELL VOLUME 87.4 fl (80-96); MEAN PLT VOLUME 7.5 fl (7.5-11.1); PLATELET COUNT 284 10^3/uL (134-434); RBC 4.48 M/mm3 (3.60-5.2); WHITE BLOOD COUNT 7.7 K/mm3 (4.0-10.0)
[2022-08-09 17:29] LABS: CALCIUM 9.2 mg/dL (8.5-10.1)
[2022-08-09 17:30] LABS: ALBUMIN 3.6 g/dl (3.4-5.0); BLOOD UREA NITROGEN 16.5 mg/dL (7-18)
[2022-08-09 17:33] LABS: CREATININE 0.6 mg/dL (0.55-1.3)
[2022-08-09 17:35] LABS: BILIRUBIN,TOTAL 0.2 mg/dL (0.2-1); TOT PROT 6.8 g/dl (6.4-8.2)
[2022-08-09] MEDS ORDERED: SODIUM CHLORIDE 0.9% 1000 ML INFUS.BAG IV ONE (17:50)
[2022-08-09 18:00] LABS: PLATELET ESTIMATE ADEQUATE
[2022-08-09 18:01] LABS: URINE CRYSTALS MANY /hpf
[2022-08-09 18:17] VITALS: RESP 16
== END 2022-08-09 19:38 | disposition home or self-care (01) ==
LOC: JER 15:07
DX: R10.32 Left lower quadrant pain (principal); R31.9 Hematuria, unspecified; Z20.822 Contact with and (suspected) exposure to COVID-19
CPT/HCPCS: 0241U-QW; 36415; 74177-TC; 80053; 81003; 85025; 87086; 93005; 93010; 99285-25; Q9967

== ENCOUNTER 2023-06-23 11:04 | Observation (INO) | payer OTHER ==
[2023-06-23] MEDS ORDERED: CEFTRIAXONE 1 GM/50 ML BAG ONE (13:12)
[2023-06-23] MEDS ORDERED: ACETAMINOPHEN INJECTION 100 ML IVPB ONE (13:12)
[2023-06-23] MEDS ORDERED: ALBUTEROL SO4 2.5/IPRATROPIUM 0.5 INH SOL 3 ML VIAL.NEB. NEB ONE ×5 (13:12→19:34)
[2023-06-23 13:17] LABS: BASO % 0.3 % (0-2.0); HEMATOCRIT 39.8 % (32.4-45.2); HEMOGLOBIN 13.7 GM/dL (10.7-15.3); LYMPH % 41.3 % (8-40); MCH 29.9 pg (25.7-33.7); MCHC 34.3 g/dl (32.0-36.0); MEAN PLT VOLUME 7.8 fl (7.5-11.1); MONO % 6.9 % (3.8-10.2); NEUT % 51.5 % (42.8-82.8); PLATELET COUNT 172 10^3/uL (134-434); RBC 4.57 M/mm3 (3.60-5.2); RDW 13.9 % (11.6-15.6); WHITE BLOOD COUNT 7.1 K/mm3 (4.0-10.0)
[2023-06-23] MEDS: SODIUM CHLORIDE 0.9% 500 ML INFUS.BAG IV ONE (13:26)
[2023-06-23] MEDS: ACETAMINOPHEN 1000 MG/100 ML BAG IVPB ONE (13:26)
[2023-06-23 13:30] LABS: POTASSIUM 4.3 mmol/L (3.5-5.1)
[2023-06-23 13:32] LABS: ALBUMIN 3.4 g/dl (3.4-5.0)
[2023-06-23 13:33] LABS: BLOOD UREA NITROGEN 8.7 mg/dL (7-18)
[2023-06-23 13:36] LABS: CREATININE 0.5 mg/dL (0.55-1.3)
[2023-06-23 13:37] LABS: TOT PROT 7.3 g/dl (6.4-8.2)
[2023-06-23 13:39] LABS: BILIRUBIN,TOTAL 0.4 mg/dL (0.2-1)
[2023-06-23 13:48] LABS: EPI CELLS 14 /uL (0-25.1); HYALINE CASTS 1 /uL (0-3.1); URINE APPEARANCE CLEAR; URINE BACTERIA 9 /uL (0-1359); URINE BILIRUBIN 1+ (NEGATIVE); URINE COLOR DK YELLOW; URINE GLUCOSE (UA) NEGATIVE (NEGATIVE); URINE KETONE NEGATIVE (NEGATIVE); URINE LEUK ESTERASE TRACE (NEGATIVE); URINE NITRITE NEGATIVE (NEGATIVE); URINE PROTEIN 1+ (NEGATIVE); URINE RBC 231 /uL (0-23.9); URINE WBC 25 /uL (0-25.8)
[2023-06-23] MEDS: ALBUTEROL SO4 2.5/IPRATROPIUM 0.5 INH SOL 3 ML VIAL.NEB. NEB ONE (14:23)
[2023-06-23] MEDS: CEFTRIAXONE 1 GM in DEXTROSE 5%-WATER - 100 ML IVPB ONE (14:23)
[2023-06-23] MEDS: ALBUTEROL SO4 2.5/IPRATROPIUM 0.5 INH SOL 3 ML VIAL.NEB. NEB SCH ×2 (15:05→19:41)
[2023-06-23] MEDS ORDERED: methylPREDNISolone NA SUCC 125 MG/2 ML VIAL ONE (18:19)
[2023-06-23] MEDS: methylPREDNISolone NA SUCC 125 MG/2 ML VIAL IVPB ONE (18:29)
[2023-06-23] MEDS ORDERED: AZITHROMYCIN IVPB 500 MG/250 ML BAG IVPB ONE (21:26)
[2023-06-23] MEDS: AZITHROMYCIN IVPB 500 MG in DEXTROSE 5%-WATER - 250 ML IVPB ONE (21:54)
[2023-06-23] MEDS ORDERED: ENOXAPARIN NA (PORCINE) 40 MG/0.4 ML DISP.SYRIN SQ ONE (22:05)
[2023-06-24 07:02] LABS: HEMATOCRIT 38.3 % (32.4-45.2); HEMOGLOBIN 13.2 GM/dL (10.7-15.3); MCH 29.7 pg (25.7-33.7); MCHC 34.4 g/dl (32.0-36.0); MEAN CELL VOLUME 86.3 fl (80-96); MEAN PLT VOLUME 8.2 fl (7.5-11.1); PLATELET COUNT 199 10^3/uL (134-434); RBC 4.45 M/mm3 (3.60-5.2); RDW 13.6 % (11.6-15.6); WHITE BLOOD COUNT 3.6 K/mm3 (4.0-10.0)
[2023-06-24 08:04] LABS: POTASSIUM 4.4 mmol/L (3.5-5.1)
[2023-06-24] MEDS ORDERED: ALBUTEROL SO4 2.5/IPRATROPIUM 0.5 INH SOL 3 ML VIAL.NEB. NEB ONE (08:05)
[2023-06-24 08:07] LABS: CALCIUM 8.6 mg/dL (8.5-10.1)
[2023-06-24 08:08] LABS: BLOOD UREA NITROGEN 11.8 mg/dL (7-18)
[2023-06-24 08:11] LABS: CREATININE 0.5 mg/dL (0.55-1.3)
[2023-06-24] MEDS: ENOXAPARIN NA (PORCINE) 40 MG/0.4 ML DISP.SYRIN SQ SCH (11:51)
[2023-06-24 12:28] VITALS: BMI 20.9
[2023-06-24 13:48] VITALS: BP 135/66; PULSE 79; RESP 20; TEMP 98.6
== END 2023-06-24 14:50 | disposition home or self-care (01) ==
LOC: JER 11:04 → JERBED 17:07 → J7W 06-24 10:01
PROVIDERS: ADMIT Internal Medicine; ATTEND Internal Medicine
PROC: 3E033NZ Introduction of Analgesics, Hypnotics, Sedatives into Peripheral Vein, Percutaneous Approach (ICD-10-PCS; principal; 2023-06-23)
PROC: 3E0F7GC Introduction of Other Therapeutic Substance into Respiratory Tract, Via Natural or Artificial Opening (ICD-10-PCS; 2023-06-23)
PROC: 3E03329 Introduction of Other Anti-infective into Peripheral Vein, Percutaneous Approach (ICD-10-PCS; 2023-06-23)
PROC: 3E033GC Introduction of Other Therapeutic Substance into Peripheral Vein, Percutaneous Approach (ICD-10-PCS; 2023-06-23)
PROC: 3E023GC Introduction of Other Therapeutic Substance into Muscle, Percutaneous Approach (ICD-10-PCS; 2023-06-23)
PROC: 3E0337Z Introduction of Electrolytic and Water Balance Substance into Peripheral Vein, Percutaneous Approach (ICD-10-PCS; 2023-06-23)
DX: R06.02 Shortness of breath (principal); R06.2 Wheezing; R73.03 Prediabetes; J44.9 Chronic obstructive pulmonary disease, unspecified; Z86.16 Personal history of COVID-19; I10 Essential (primary) hypertension
CPT/HCPCS: 0241U-QW; 36415; 71045-TC-FY; 71275-TC; 80048; 80053; 81003; 83605; 83690; 83880; 84484; 85025; 85027; 86140; 87040; 93005; 93010; 94640; 96365; 96366; 96372; 96375; 99285-25; G0378; J0131; Q9967